=== PATIENT | female | born 2000 | race African-American/Black ===

== ENCOUNTER 2019-02-05 22:28 | Emergency (ER) | payer SELFPAY ==
[2019-02-06] MEDS ORDERED: NORMAL SALINE 1000 ML 1,000 ML IV ONE (01:36)
--- NOTE | 2019-02-06 01:36 | ER Document Report ---
ED Medical Screen (RME) - General Chief Complaint: Abdominal Pain Stated Complaint: ABDOMINAL PAINS Time Seen by Provider: 02/06/19 01:34 Mode of Arrival: Ambulatory Information source: Patient Notes: Patient presents complaining of lower pelvic and hip pain that started today. Patient does complain of nausea. No fever or urinary symptoms. Patient denies any vaginal discharge. Patient does state that she start her period 3 days ago and that her periods are very irregular. Patient states she cannot remember when she had her last period. I have greeted and performed a rapid initial assessment of this patient. A comprehensive ED assessment and evaluation of the patient, analysis of test results and completion of the medical decision making process will be conducted by additional ED providers. TRAVEL OUTSIDE OF THE [place] IN LAST 30 DAYS: No - Related Data Allergies/Adverse Reactions: No Known Allergies Allergy (Verified 02/05/19 22:32) Physical Exam - Vital signs Vitals: Temp Pulse Resp BP Pulse Ox 98.2 F 94 H 16 95/63 L 96 02/05/19 22:42 02/05/19 22:42 02/05/19 22:42 02/05/19 22:42 02/05/19 22:42 - Abdominal Tenderness: Tender - Lower pelvic Course - Vital Signs Vital signs: Temp Pulse Resp BP Pulse Ox 98.2 F 94 H 16 95/63 L 96 02/05/19 22:42 02/05/19 22:42 02/05/19 22:42 02/05/19 22:42 02/05/19 22:42
--- NOTE | 2019-02-06 02:01 | ER Document Report ---
ED General - General Chief Complaint: Abdominal Pain Stated Complaint: ABDOMINAL PAINS Time Seen by Provider: 02/06/19 01:34 Primary Care Provider: ARA PAIGE MD [ACTIVE STAFF] - Follow up in 3-5 days Mode of Arrival: Ambulatory Notes: Patient is a 18-year-old female presents with complaint of pain in lower abdomen that then spreads across her pelvic region. No abnormal vaginal discharge. She did start having some vaginal bleeding 3 days ago. She said she has irregular periods and that she usually does not bleed. She said last time she had any vaginal bleeding was 3 months ago and she only had just a few hours of spotting that was it. She says her bleeding last 3 days is not heavy but it is what she would consider to be a normal flow for most people. She denies any abnormal vaginal discharge. Last time she was sexually active was 1 month ago and she says her partner did wear condoms. She denies any fevers. Some nausea but no vomiting. No diarrhea. No other complaints at this time. She is not taking medications. No history of abdominal surgeries. TRAVEL OUTSIDE OF THE [place] IN LAST 30 DAYS: No - Related Data Allergies/Adverse Reactions: No Known Allergies Allergy (Verified 02/05/19 22:32) Past Medical History - General Information source: Patient - Social History Smoking Status: Never Smoker Frequency of alcohol use: None Drug Abuse: None Family History: Reviewed & Not Pertinent Review of Systems - Review of Systems Notes: My Normal Review Basic REVIEW OF SYSTEMS: CONSTITUTIONAL : Denies fever, chills, or sweats. Denies recent illness. RESPIRATORY: Denies cough, cold, or chest congestion. Denies shortness of breath, difficulty breathing, or wheezing. GASTROINTESTINAL: Lower abdominal pain. Some nausea. No vomiting. No di arrhea. GENITOURINARY: Denies difficulty urinating, painful urination, burning, frequency, or blood in urine. FEMALE GENITOURINARY: Denies vaginal bleeding, abnormal or irregular periods. LMP: Currently MUSCULOSKELETAL: Denies neck or back pain or joint pain or swelling. SKIN: Denies rash or skin lesions. NEUROLOGICAL: Denies altered mental status or loss of consciousness. Denies headache. Denies weakness or paralysis or loss of use of either side. Denies problems with gait or speech. Denies sensory or motor loss. ALL OTHER SYSTEMS REVIEWED AND NEGATIVE. Physical Exam - Vital signs Vitals: Temp Pulse Resp BP Pulse Ox 98.2 F 94 H 16 95/63 L 96 02/05/19 22:42 02/05/19 22:42 02/05/19 22:42 02/05/19 22:42 02/05/19 22:42 - Notes Notes: General Appearance: Well nourished, alert, cooperative, no acute distress, no obvious discomfort. Well appearing. Vitals: reviewed, See vital signs table. Eyes: PERRL, EOMI, Conjuctiva clear Mouth: No decreasd moisture Lungs: No wheezing, No rales, No rhonci, No accessory muscle use, good air exchange bilaterally. Heart: Normal rate, Regular rythm, No murmur, no rub Abdomen: Normal BS, soft, No rigidity, mild suprapubic abdominal tenderness palpation., No guarding, no rebound, no abdominal masses, no organomegaly Pelvic exam: Normal external genitalia. Some blood in vaginal vault consistent with patient's current menstrual period. No abnormal discharge. No pain during exam. Exam performed with female PCTKaty, at bedside. Extremities: good pulses in all extremities, no swelling or tenderness in the extremities, no edema. Skin: warm, dry, appropriate color, no rash Neuro: speech clear, oriented x 3, normal affect, responds appropriately to questions. Course - Re-evaluation Re-evalutation: 02/06/19 06:40 Patient's ultrasound shows endometrial hyperplasia. This is likely why she does not have menstrual periods very often. Her pain seems to be associate with this. She is currently having. Pelvic exam was unremarkable. Patient looks well. She has no abnormal findings on her urine or blood work. I feel that she is safe to be discharged home. I will refer her to gynecology due to her recurrent irregular periods and pelvic pain that occurs with her periods. Patient to return to ER if she has worsening pain, fevers, heavy bleeding, or if she feels unwell. Patient agrees with plan and will be discharged home. Dictation of this chart was performed using voice recognition software; therefore, there may be some unintended grammatical errors. - Vital Signs Vital signs: Temp Pulse Resp BP Pulse Ox 98.1 F 78 16 118/78 98 02/06/19 05:47 02/06/19 05:47 02/06/19 05:47 02/06/19 05:47 02/06/19 05:47 - Laboratory Result Diagrams: 02/06/19 01:40 02/06/19 01:40 Laboratory results interpreted by me: 02/06/19 02/06/19 02/06/19 01:40 01:40 01:40 Hgb 11.1 L Hct 34.2 L MCV 78 L MCH 25.2 L RDW 16.9 H Chloride 109 H AST 47 H Urine Blood MODERATE H Discharge - Discharge Clinical Impression: Pelvic pain Condition: Good Disposition: HOME, SELF-CARE Additional Instructions: Please follow up with the slip cover seamstress, Dr. Paige, if you are still having pain by Friday. Call his office to make a follow up appointment. 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 This is likely why you have irregular periods. Please take ibuprof en 600mg every 6 hours for pain. return to the ER immediately if you have worsening pain, fevers, vomiting, or feel unwell. We sent swabs looking for evidence of vaginal infection. Based on exam I suspect your swabs will be negative. The Gonorrhea and Chlamydia swabs take about 18 hours to come back. If they are positive we will call you. You can also call the culture call back number at [phone] on Friday to get your results. Forms: Return to Work Referrals: ARA PAIGE MD [ACTIVE STAFF] - Follow up in 3-5 days
[2019-02-06 02:06] LABS: ABSOLUTE BASOPHILS # (AUTO) 0.1 10^3/uL (0.0-0.2); ABSOLUTE EOSINOPHILS # (AUTO) 0.2 10^3/uL (0.0-0.6); ABSOLUTE LYMPHOCYTES (AUTO) 2.2 10^3/uL (0.5-4.7); ABSOLUTE MONOCYTES (AUTO) 0.8 10^3/uL (0.1-1.4); ABSOLUTE NEUT (AUTO) 4.7 10^3/uL (1.7-8.2); BASOPHILS % (AUTO) 1.3 % (0-2); EOSINOPHILS % (AUTO) 2.8 % (0-6); HEMATOCRIT 34.2 % (36.0-47.0); HEMOGLOBIN 11.1 g/dL (12.0-15.5); LYMPHOCYTES % (AUTO) 27.1 % (13-45); MEAN CORPUSCULAR HEMOGLOBIN 25.2 pg (27.0-33.4); MEAN CORPUSCULAR HGB CONC 32.5 g/dL (32.0-36.0); MEAN CORPUSCULAR VOLUME 78 fl (80-97); MONOCYTES % (AUTO) 10.3 % (3-13); PLATELET COUNT 447 10^3/uL (150-450); RED BLOOD COUNT 4.41 10^6/uL (3.72-5.28); RED CELL DISTRIBUTION WIDTH 16.9 % (11.5-14.0); SEGMENTED NEUTROPHILS % (AUTO) 58.5 % (42-78); TOTAL CELLS COUNTED % (AUTO) 100 %; WHITE BLOOD COUNT 8.1 10^3/uL (4.0-10.5)
[2019-02-06 02:15] LABS: APPEARANCE,URINE CLEAR; BILIRUBIN,URINE NEGATIVE (NEGATIVE); COLOR,URINE YELLOW; GLUCOSE, URINE NEGATIVE (NEGATIVE); KETONES,URINE NEGATIVE (NEGATIVE); LEUKOCYTE ESTERASE,URINE NEGATIVE (NEGATIVE); NITRITE,URINE NEGATIVE (NEGATIVE); PROTEIN,URINE NEGATIVE (NEGATIVE); URINE SPECIFIC GRAVITY 1.026; UROBILINOGEN,URINE NEGATIVE mg/dL (<2.0)
[2019-02-06 02:30] LABS: ALANINE AMINOTRANSFERASE 19 U/L (5-35); ALBUMIN 3.9 g/dL (3.7-5.6); ALKALINE PHOSPHATASE 68 U/L (50-135); ANION GAP 6 (5-19); ASPARTATE AMINO TRANSFERASE 47 U/L (5-30); BILIRUBIN,DIRECT 0.2 mg/dL (0.0-0.4); BILIRUBIN,TOTAL 0.2 mg/dL (0.2-1.3); BLOOD UREA NITROGEN 16 mg/dL (7-20); CARBON DIOXIDE 25 mmol/L (22-30); CHLORIDE 109 mmol/L (98-107); GLUCOSE 90 mg/dL (75-110); POTASSIUM 3.9 mmol/L (3.6-5.0); SODIUM 139.6 mmol/L (137-145); TOTAL PROTEIN 6.9 g/dL (6.3-8.2)
[2019-02-06] MEDS ORDERED: KETOROLAC TROMETHAMINE INJ/PF 30 MG/1 ML SDV IV ONE (02:54)
--- NOTE | 2019-02-06 04:01 | RADIOLOGY REPORT (SQ) ---
EXAM DESCRIPTION: US PELVIS TRANSVAGINAL COMPLETED DATE/TME: 02/06/2019 02:53 CLINICAL HISTORY: 18 years Female, pelvic pain Comparison: None. Technique: Transvaginal. LIMITATIONS: None. FINDINGS: 5-cm uterus, 0.2-cm endometrial stripe thickness, 4.7-cm right ovary, and 3.6-cm left ovary appear normal in size, shape, echotexture, and vascularity. Small free fluid. IMPRESSION: 1. Small free pelvic fluid. 2. Endometrial hypoplasia.
[2019-02-06 05:15] LABS: RBCS (WET MOUNT) 2+ RBCS SEEN; T.VAGINALIS (WET MOUNT) NO TRICHOMONAS SEEN; WBCS (WET MOUNT) RARE WBCS SEEN; YEAST (WET MOUNT) NO YEAST SEEN
[2019-02-06 05:48] VITALS: BP 118/78
[2019-02-06 06:39] LABS: CHLAM PCR NOT DETECTED (NOT DETECT)
== END 2019-02-06 05:48 | disposition home or self-care (01) ==
LOC: ER 22:28
DX: R10.2 Pelvic and perineal pain (principal); R10.9 Unspecified abdominal pain; R10.30 Lower abdominal pain, unspecified
CPT/HCPCS: 99284; 96374; 36415; 87210; 84703; 85025; 80053; 81001; 87491; 87591; 76830; 93976; J1885

== ENCOUNTER 2019-03-15 14:26 | Emergency (ER) | payer SELFPAY ==
--- NOTE | 2019-03-15 15:43 | ER Document Report ---
ED General - General Chief Complaint: Chest Wall Pain Stated Complaint: CHEST PAIN Time Seen by Provider: 03/15/19 14:44 TRAVEL OUTSIDE OF THE [place] IN LAST 30 DAYS: No - HPI Notes: Presents with 2 days of sharp midsternal upper chest pain worse with movement. Patient states she has been having a minor cough over the last 2 days as well. No history of sudden in the family she has no known medical problems does not take any medications on a daily basis. - Related Data Allergies/Adverse Reactions: No Known Allergies Allergy (Verified 03/15/19 14:36) Past Medical History - Social History Smoking Status: Current Every Day Smoker Frequency of alcohol use: None Drug Abuse: None Family History: Reviewed & Not Pertinent Patient has suicidal ideation: No Patient has homicidal ideation: No Renal/ Medical History: Denies: Hx Peritoneal Dialysis Review of Systems - Review of Systems Constitutional: No symptoms reported EENT: No symptoms reported Cardiovascular: See HPI Respiratory: No symptoms reported Gastrointestinal: No symptoms reported Genitourinary: No symptoms reported Female Genitourinary: No symptoms reported Musculoskeletal: No symptoms reported Skin: No symptoms reported Hematologic/Lymphatic: No symptoms reported Neurological/Psychological: No symptoms reported Physical Exam - Vital signs Vitals: Temp Pulse Resp BP Pulse Ox 98.6 F 107 H 15 127/71 H 98 03/15/19 14:31 03/15/19 14:31 03/15/19 14:31 03/15/19 14:31 03/15/19 14:31 - General General appearance: Appears well, Alert - HEENT Head: Normocephalic, Atraumatic - Respiratory Respiratory status: No respiratory distress Chest status: Nontender Breath sounds: Normal Chest palpation: Other - Pain reproducible with minor palpation of upper chest wall. No erythema or rash - Cardiovascular Rhythm: Regular Heart sounds: Normal auscultation Murmur: No - Abdominal Inspection: Normal Distension: No distension, Other Course - Re-evaluation Re-evalutation: 03/15/19 15:43 Patient is a smoker has a sharp pain worse with movement and has been having a cough likely costochondritis/chest wall pain. Will perform EKG and chest x-ray due to history of cough congestion 03/15/19 16:45 EKG shows no concerning findings and chest x-ray shows no acute findings. Discussed with patient. Will treat for costochondritis patient requesting work excuse at this time. - Vital Signs Vital signs: Temp Pulse Resp BP Pulse Ox 98.6 F 107 H 15 127/71 H 98 03/15/19 14:31 03/15/19 14:31 03/15/19 14:31 03/15/19 14:31 03/15/19 14:31 - EKG Interpretation by Md EKG shows normal: Sinus rhythm Rate: Normal Rhythm: NSR - No evidence of prolonged QT, Brugada, hypertrophic cardiomyopathy. Discharge - Discharge Clinical Impression: Chest wall pain Condition: Good Disposition: HOME, SELF-CARE Instructions: Chest Wall Pain ([facility]) Prescriptions: Naproxen 500 mg PO BID #10 tablet Forms: Return to Work
--- NOTE | 2019-03-15 16:38 | RADIOLOGY REPORT (SQ) ---
EXAM DESCRIPTION: CHEST SINGLE VIEW COMPLETED DATE/TIME: 03/15/2019 4:26 pm REASON FOR STUDY: chest pain COMPARISON: None. EXAM PARAMETERS: NUMBER OF VIEWS: One view. TECHNIQUE: Single frontal radiographic view of the chest acquired. RADIATION DOSE: NA LIMITATIONS: None. FINDINGS: LUNGS AND PLEURA: No opacities, masses or pneumothorax. No pleural effusion. MEDIASTINUM AND HILAR STRUCTURES: No masses. Contour normal. HEART AND VASCULAR STRUCTURES: Borderline cardiomegaly. Normal vasculature. BONES: Levoconvex scoliosis of the thoracic spine. HARDWARE: None in the chest. OTHER: No other significant finding. IMPRESSION: 1. No acute pulmonary findings. 2. Borderline cardiomegaly suggested. No evidence for failure. TECHNICAL DOCUMENTATION: JOB ID: [id number] [employer]- All Rights Reserved Reading location - IP/workstation name: [email or web address]
[2019-03-15 17:21] VITALS: BP 114/58
--- NOTE | 2019-03-15 17:30 | EKG REPORT ---
SEVERITY:- NORMAL ECG - SINUS RHYTHM : Confirmed by: Nadir Haeys MD 15-Mar-2019 17:29:57
== END 2019-03-15 17:15 | disposition home or self-care (01) ==
LOC: ER 14:26
DX: R07.89 Other chest pain (principal); R05 Cough; F17.200 Nicotine dependence, unspecified, uncomplicated
CPT/HCPCS: 71045; 93005; 93010; 99285